=== PATIENT | male | born 1995 | race Caucasian/White ===

== ENCOUNTER 2019-09-10 09:42 | Observation (INO) | payer BC ==
[~2019-09-10] VITALS: Ht 180.3 cm; Wt 123.7 kg
[2019-09-10] MEDS ORDERED: IV NORMAL SALINE 1000ML BAG 1,000 ML IV SCH ×2 (10:16→15:53)
--- NOTE | 2019-09-10 10:21 | PHYS DOC ---
Past Medical History Past Medical History: No Pertinent History Past Surgical History: No Surgical History Smoking Status: Never Smoker Alcohol Use: None General Adult EDM: Chief Complaint: ABDOMINAL PAIN HPI: HPI: Patient is a 23 year old male who presents with a woke up 3:00 this morning with right flank pain. He states he went back to sleep and the pain is now located in his right lower quadrant. He states that sharp and shooting. He states he does not really have any back pain anymore. States he did have a bowel movement this morning and was normal for him. He states he did vomit once. He states he is nauseated. He denies fever, dysuria, diarrhea, constipation. Review of Systems: Review of Systems: GI: RLQ abdominal pain, nausea, vomiting, denies bloody stools or diarrhea. [] Heart Score: Risk Factors: Risk Factors: DM, Current or recent (<one month) smoker, HTN, HLP, family history of CAD, obesity. Risk Scores: Score 0 - 3: 2.5% MACE over next 6 weeks - Discharge Home Score 4 - 6: 20.3% MACE over next 6 weeks - Admit for Clinical Observation Score 7 - 10: 72.7% MACE over next 6 weeks - Early Invasive Strategies Physical Exam: PE: Constitutional: Well developed, well nourished, no acute distress, non-toxic appearance. [] HENT: Normocephalic, atraumatic, bilateral external ears normal, oropharynx moist, no oral exudates, nose normal. [] Eyes: PERRLA, EOMI, conjunctiva normal, no discharge. [] Neck: Normal range of motion, no tenderness, supple, no stridor. [] Cardiovascular:Heart rate regular rhythm, no murmur [] Lungs & Thorax: Bilateral breath sounds clear to auscultation [] Abdomen: Bowel sounds normal, soft, no tenderness, no masses, no pulsatile m asses. [] Skin: Warm, dry, no erythema, no rash. [] Back: No tenderness, no CVA tenderness. [] Extremities: No tenderness, no cyanosis, no clubbing, ROM intact, no edema. [] Neurologic: Alert and oriented X 3, normal motor function, normal sensory function, no focal deficits noted. [] Psychologic: Affect normal, judgement normal, mood normal. Normal Physical Exam [] Current Patient Data: Vital Signs: Vital Signs Date Time Temp Pulse Resp B/P (MAP) Pulse Ox O2 Delivery O2 Flow Rate FiO2 09/10/19 10:04 97.7 64 18 114/75 (88) 98 Room Air 97.7 EKG: EKG: [] Radiology/Procedures: Radiology/Procedures: [] Impression: [facility] [address] [place] [address] IMAGING REPORT Signed PATIENT: KEM ESPINOZA ACCOUNT: [id number] : 1995 LOCATION: ER AGE: 23 SEX: M EXAM STATUS: REG ER ORD. PHYSICIAN: ABELINO PORTILLO APRN REASON: RLQ pain PROCEDURE: CT ABD PELV W/ IV CONTRST ONLY Axial CT of the abdomen and pelvis were obtained after the administration of 75 cc Omnipaque 300. Coronal and sagittal reformats are also available. Exposure: One or more of the following individualized dose reduction techniques were utilized for this examination: 1. Automated exposure control 2. Adjustment of the mA and/or kV according to patient size 3. Use of iterative reconstruction technique Indication: Right lower quadrant pain. Comparison: None. Findings: The lung bases are clear. The heart is not enlarged. Liver is hypodense relative to the spleen. The spleen, adrenals, kidneys pancreas and gallbladder are unremarkable in appearance. There are a few small reactive lymph nodes in the right lower quadrant mesentery. There is an appendicolith identified in the appendix. The appendix is dilated full of air and fluid. There is minimal inflammatory change surrounding the appendix. Remainder of the stomach, small and large bowel are nondistended. Abdominal aorta is nonaneurysmal. The portal, superior mesenteric and splenic veins are normal in appearance. Bony structures are unremarkable. IMPRESSION: 1. Findings suggestive of occluded appendix with early changes of appendicitis. Correlate with physical examination findings. There is a high clinical suspicion correlate with surgical consult and possibly follow-up imaging if needed. 2. Hepatic steatosis. Electronically signed by: Bhupendra Marmolejo MD (09/10/2019 12:42 PM) [id number] DICTATED and SIGNED BY: BHUPENDRA MARMOLEJO MD DATE: 09/10/19 1246 Course & Med Decision Making: Course & Med Decision Making Pertinent Labs and Imaging studies reviewed. (See chart for details) Patient is rating his pain 8 out of 10. He states it will went up slightly at times. Nothing makes it better or worse. Abdomen is soft and nontender. No CVA tenderness. Skin pink warm and dry. Ambulatory with a steady gait. Alert and oriented. Afebrile. Patient CT shows appendicitis. Patient will stay inpatient be admitted by the hospitalist. I have spoken to Dr. Greene who states he will come see the patient. Patient states he has had nothing to eat or drink today. [] Dragon Disclaimer: Dragon Disclaimer: This electronic medical record was generated, in whole or in part, using a voice recognition dictation system. Departure Departure Impression: Primary Impression: Appendicitis Qualified Codes: K35.890 - Other acute appendicitis without perforation or gangrene Disposition: ADMITTED INPATIENT Admitting Physician: CONCHIS Condition: STABLE Referrals: NO PCP (PCP) Justicifation of Admission Dx: Justifications for Admission: Justification of Admission Dx: Yes Comments: appendicitis ABELINO PORTILLO NURSING SERVICE DIRECTOR Sep 10, 2019 10:21
[2019-09-10] MEDS ORDERED: fentaNYL PF VIAL 100 MCG/2 ML VIAL IVP ONE (10:30)
[2019-09-10] MEDS ORDERED: KETOROLAC 30 MG/ML VIAL. IVP ONE (10:30)
[2019-09-10 10:56] LABS: BILIRUBIN,URINE NEGATIVE (NEG); CLARITY,URINE CLOUDY; COLOR,URINE YELLOW; NITRITE,URINE NEGATIVE (NEG); PROTEIN,URINE NEGATIVE (NEG-TRACE); UROBILINOGEN,URINE 0.2 mg/dL (0.2 mg/dL)
[2019-09-10 10:59] LABS: BASO % 0 % (0-3); EOS % 0 % (0-3); HEMATOCRIT 49.1 % (39.0-53.0); HEMOGLOBIN 17.3 g/dL (13.0-17.5); LYMPH # 0.9 x10^3/uL (1.0-4.8); LYMPH % 5 % (24-48); MEAN CORPUSCULAR HEMOGLOBIN 30 pg (25-35); MEAN CORPUSCULAR HGB CONC 35 g/dL (31-37); MEAN CORPUSCULAR VOLUME 86 fL (79-100); MONO # 0.9 x10^3/uL (0.0-1.1); MONO % 6 % (0-9); NEUT # 14.9 x10^3/uL (1.8-7.7); NEUT % 89 % (31-73); PLATELET COUNT 254 x10^3/uL (140-400); RED CELL DISTRIBUTION WIDTH 12.5 % (11.5-14.5); WHITE BLOOD COUNT 16.7 x10^3/uL (4.0-11.0)
[2019-09-10 11:02] LABS: CREATININE 1.1 mg/dL (0.7-1.3); POTASSIUM 4.3 mmol/L (3.5-5.1)
[2019-09-10 11:08] LABS: ALBUMIN 4.5 g/dL (3.4-5.0); ALBUMIN/GLOBULIN RATIO 1.3 (1.0-1.7); TOTAL BILIRUBIN 1.1 mg/dL (0.2-1.0); TOTAL PROTEIN 8.1 g/dL (6.4-8.2)
[2019-09-10 11:15] LABS: PROTHROMBIN TIME PATIENT 13.1 SEC (11.7-14.0)
[2019-09-10 11:25] LABS: AMORPHOUS SEDIMENT,UR PRESENT /HPF; BACTERIA,URINE 0 /HPF (0-FEW); RBC,URINE 0 /HPF (0-2); SQUAMOUS EPITHELIAL CELL,UR FEW /LPF; WBC,URINE OCC /HPF (0-4)
[2019-09-10] MEDS ORDERED: IOHEXOL 300 MG/ML 100ML VIAL. IV ONE (12:30)
[2019-09-10] MEDS ORDERED: CONTRAST GIVEN. MC PRN (12:30)
[2019-09-10 12:42] LABS: % BANDS 21 % (0-9); % BASOS 1 % (0-3); % LYMPHS 8 % (24-48); % MONOS 5 % (0-10); % SEGS 65 % (35-66); PLT ESTIMATE ADEQUATE (ADEQUATE)
--- NOTE | 2019-09-10 12:45 | RAD ---
Axial CT of the abdomen and pelvis were obtained after the administration of 75 cc Omnipaque 300. Coronal and sagittal reformats are also available. Exposure: One or more of the following individualized dose reduction techniques were utilized for this examination: 1. Automated exposure control 2. Adjustment of the mA and/or kV according to patient size 3. Use of iterative reconstruction technique Indication: Right lower quadrant pain. Comparison: None. Findings: The lung bases are clear. The heart is not enlarged. Liver is hypodense relative to the spleen. The spleen, adrenals, kidneys pancreas and gallbladder are unremarkable in appearance. There are a few small reactive lymph nodes in the right lower quadrant mesentery. There is an appendicolith identified in the appendix. The appendix is dilated full of air and fluid. There is minimal inflammatory change surrounding the appendix. Remainder of the stomach, small and large bowel are nondistended. Abdominal aorta is nonaneurysmal. The portal, superior mesenteric and splenic veins are normal in appearance. Bony structures are unremarkable. IMPRESSION: 1. Findings suggestive of occluded appendix with early changes of appendicitis. Correlate with physical examination findings. There is a high clinical suspicion correlate with surgical consult and possibly follow-up imaging if needed. 2. Hepatic steatosis. Electronically signed by: Bhupendra Marmolejo MD (09/10/2019 12:42 PM) [id number]
[2019-09-10] MEDS ORDERED: PIPERACILLIN/TAZOBACTAM 3.375 GM in IV NORMAL SALINE 50ML 50 ML IV ONE (13:15)
[2019-09-10] MEDS ORDERED: ONDANSETRON PF 4 MG/2 ML VIAL. IV PRN ×2 (13:45→14:00)
--- NOTE | 2019-09-10 13:45 | PDOC2 ---
CONSULT Date of Consult Date of Consult DATE: 09/10/19 TIME: 13:38 Reason for Consult Reason for Consult: acute appendicitis Referring Physician Referring Physician: EVELYNE Identification/Chief Complaint Chief Complaint RLQ pain Source Source: Chart review, Patient History of Present Illness Reason for Visit: Denny is a 23-year-old male who was awakened at 3:00 this morning with right- sided back pain. By this morning it had migrated into the right lower quadrant. He had some nausea and an episode of vomiting. He had a normal stool this morning. He denies any similar previous episodes of this severity in the past. Past Medical History Cardiovascular: No pertinent hx Pulmonary: No pertinent hx Renal/: No pertinent hx Past Surgical History Past Surgical History: No pertinent history Family History Family History: No Significant Social History No ALCOHOL: none Lives: with Family Current Problem List Problem List Problems Medical Problems: (1) Appendicitis Status: Acute Current Medications Current Medications Current Medications Sodium Chloride 1,000 ml @ 1,000 mls/hr Q1H IV Last administered on 09/10/19at 10:42; Start 09/10/19 at 10:16; Stop 09/10/19 at 11:15; Status DC Fentanyl Citrate (Fentanyl 2ml Vial) 50 mcg 1X ONCE IVP Last administered on 09/10/19at 10:45; Start 09/10/19 at 10:30; Stop 09/10/19 at 10:31; Status DC Ketorolac Tromethamine (Toradol 30mg Vial) 30 mg 1X ONCE IVP Last administered on 09/10/19at 10:42; Start 09/10/19 at 10:30; Stop 09/10/19 at 10:31; Status DC Iohexol (Omnipaque 300 Mg/ml) 75 ml 1X ONCE IV Last administered on 09/10/19at 12:28; Start 09/10/19 at 12:30; Stop 09/10/19 at 12:31; Status DC Info (CONTRAST GIVEN -- Rx MONITORING) 1 each PRN DAILY PRN MC SEE COMMENTS; Start 09/10/19 at 12:30; Stop 09/12/19 at 12:29 Piperacillin Sod/ Tazobactam Sod 3.375 gm/Sodium Chloride 50 ml @ 100 mls/hr 1X ONCE IV Last administered on 09/10/19at 13:15; Start 09/10/19 at 13:15; Stop 09/10/19 at 13:44 Allergies Allergies: Coded Allergies: No Known Drug Allergies (Unverified , 09/10/19) ROS Review of System Negative with exception of present complaints Physical Exam General: Alert, Oriented X3, No acute distress HEENT: Atraumatic Lungs: Normal air movement Heart: Regular rate Abdomen: Soft, Other (Tender to palpation right lower quadrant) Skin: Other (Warm, dry) Neuro: Normal speech Vitals VITALS Vital Signs Date Time Temp Pulse Resp B/P (MAP) Pulse Ox O2 Delivery O2 Flow Rate FiO2 09/10/19 10:04 97.7 64 18 114/75 (88) 98 Room Air 97.7 Labs Labs Laboratory Tests Test 09/10/19 10:10 09/10/19 10:40 Urine Collection Type Unknown Urine Color Yellow Urine Clarity Cloudy Urine pH 6.0 (<5.0-8.0) Urine Specific [place] 1.025 (1.000-1.030) Urine Protein Negative mg/dL (NEG-TRACE) Urine Glucose (UA) Negative mg/dL (NEG) Urine Ketones (Stick) 15 mg/dL (NEG) Urine Blood Negative (NEG) Urine Nitrite Negative (NEG) Urine Bilirubin Negative (NEG) Urine Urobilinogen Dipstick 0.2 mg/dL (0.2 mg/dL) Urine Leukocyte Esterase Negative (NEG) Urine RBC 0 /HPF (0-2) Urine WBC Occ /HPF (0-4) Urine Squamous Epithelial Cells Few /LPF Urine Amorphous Sediment Present /HPF Urine Bacteria 0 /HPF (0-FEW) Urine Mucus Marked /LPF White Blood Count 16.7 x10^3/uL (4.0-11.0) Red Blood Count 5.70 x10^6/uL (4.30-5.70) Hemoglobin 17.3 g/dL (13.0-17.5) Hematocrit 49.1 % (39.0-53.0) Mean Corpuscular Volume 86 fL (79-100) Mean Corpuscular Hemoglobin 30 pg (25-35) Mean Corpuscular Hemoglobin Concent 35 g/dL (31-37) Red Cell Distribution Width 12.5 % (11.5-14.5) Platelet Count 254 x10^3/uL (140-400) Neutrophils (%) (Auto) 89 % (31-73) Lymphocytes (%) (Auto) 5 % (24-48) Monocytes (%) (Auto) 6 % (0-9) Eosinophils (%) (Auto) 0 % (0-3) Basophils (%) (Auto) 0 % (0-3) Neutrophils # (Auto) 14.9 x10^3/uL (1.8-7.7) Lymphocytes # (Auto) 0.9 x10^3/uL (1.0-4.8) Monocytes # (Auto) 0.9 x10^3/uL (0.0-1.1) Eosinophils # (Auto) 0.0 x10^3/uL (0.0-0.7) Basophils # (Auto) 0.0 x10^3/uL (0.0-0.2) Segmented Neutrophils % 65 % (35-66) Band Neutrophils % 21 % (0-9) Lymphocytes % 8 % (24-48) Monocytes % 5 % (0-10) Basophils % 1 % (0-3) Platelet Estimate Adequate (ADEQUATE) Prothrombin Time 13.1 SEC (11.7-14.0) Prothromb Time International Ratio 1.0 (0.8-1.1) Sodium Level 141 mmol/L (136-145) Potassium Level 4.3 mmol/L (3.5-5.1) Chloride Level 102 mmol/L (98-107) Carbon Dioxide Level 30 mmol/L (21-32) Anion Gap 9 (6-14) Blood Urea Nitrogen 11 mg/dL (8-26) Creatinine 1.1 mg/dL (0.7-1.3) Estimated GFR (Cockcroft-Gault) 83.0 BUN/Creatinine Ratio 10 (6-20) Glucose Level 121 mg/dL (70-99) Calcium Level 9.0 mg/dL (8.5-10.1) Total Bilirubin 1.1 mg/dL (0.2-1.0) Aspartate Amino Transf (AST/SGOT) 20 U/L (15-37) Alanine Aminotransferase (ALT/SGPT) 43 U/L (16-63) Alkaline Phosphatase 65 U/L (46-116) Total Protein 8.1 g/dL (6.4-8.2) Albumin 4.5 g/dL (3.4-5.0) Albumin/Globulin Ratio 1.3 (1.0-1.7) Lipase 69 U/L (73-393) Laboratory Tests Test 09/10/19 10:10 09/10/19 10:40 Urine Collection Type Unknown Urine Color Yellow Urine Clarity Cloudy Urine pH 6.0 (<5.0-8.0) Urine Specific [place] 1.025 (1.000-1.030) Urine Protein Negative mg/dL (NEG-TRACE) Urine Glucose (UA) Negative mg/dL (NEG) Urine Ketones (Stick) 15 mg/dL (NEG) Urine Blood Negative (NEG) Urine Nitrite Negative (NEG) Urine Bilirubin Negative (NEG) Urine Urobilinogen Dipstick 0.2 mg/dL (0.2 mg/dL) Urine Leukocyte Esterase Negative (NEG) Urine RBC 0 /HPF (0-2) Urine WBC Occ /HPF (0-4) Urine Squamous Epithelial Cells Few /LPF Urine Amorphous Sediment Present /HPF Urine Bacteria 0 /HPF (0-FEW) Urine Mucus Marked /LPF White Blood Count 16.7 x10^3/uL (4.0-11.0) Red Blood Count 5.70 x10^6/uL (4.30-5.70) Hemoglobin 17.3 g/dL (13.0-17.5) Hematocrit 49.1 % (39.0-53.0) Mean Corpuscular Volume 86 fL (79-100) Mean Corpuscular Hemoglobin 30 pg (25-35) Mean Corpuscular Hemoglobin Concent 35 g/dL (31-37) Red Cell Distribution Width 12.5 % (11.5-14.5) Platelet Count 254 x10^3/uL (140-400) Neutrophils (%) (Auto) 89 % (31-73) Lymphocytes (%) (Auto) 5 % (24-48) Monocytes (%) (Auto) 6 % (0-9) Eosinophils (%) (Auto) 0 % (0-3) Basophils (%) (Auto) 0 % (0-3) Neutrophils # (Auto) 14.9 x10^3/uL (1.8-7.7) Lymphocytes # (Auto) 0.9 x10^3/uL (1.0-4.8) Monocytes # (Auto) 0.9 x10^3/uL (0.0-1.1) Eosinophils # (Auto) 0.0 x10^3/uL (0.0-0.7) Basophils # (Auto) 0.0 x10^3/uL (0.0-0.2) Segmented Neutrophils % 65 % (35-66) Band Neutrophils % 21 % (0-9) Lymphocytes % 8 % (24-48) Monocytes % 5 % (0-10) Basophils % 1 % (0-3) Platelet Estimate Adequate (ADEQUATE) Prothrombin Time 13.1 SEC (11.7-14.0) Prothromb Time International Ratio 1.0 (0.8-1.1) Sodium Level 141 mmol/L (136-145) Potassium Level 4.3 mmol/L (3.5-5.1) Chloride Level 102 mmol/L (98-107) Carbon Dioxide Level 30 mmol/L (21-32) Anion Gap 9 (6-14) Blood Urea Nitrogen 11 mg/dL (8-26) Creatinine 1.1 mg/dL (0.7-1.3) Estimated GFR (Cockcroft-Gault) 83.0 BUN/Creatinine Ratio 10 (6-20) Glucose Level 121 mg/dL (70-99) Calcium Level 9.0 mg/dL (8.5-10.1) Total Bilirubin 1.1 mg/dL (0.2-1.0) Aspartate Amino Transf (AST/SGOT) 20 U/L (15-37) Alanine Aminotransferase (ALT/SGPT) 43 U/L (16-63) Alkaline Phosphatase 65 U/L (46-116) Total Protein 8.1 g/dL (6.4-8.2) Albumin 4.5 g/dL (3.4-5.0) Albumin/Globulin Ratio 1.3 (1.0-1.7) Lipase 69 U/L (73-393) CBC noted Images Images CT scan done earlier is reviewed Assessment/Plan Assessment/Plan Early acute appendicitis by history and lab and x-ray Explained risks of laparoscopic appendectomy to Denny and his mother who is in the room with him including but not limited to bleeding, infection, injury to surrounding structures requiring further surgery in the future, possibility that this is NOT an acute appendicitis (i.e. mesenteric adenitis, gastroenteritis). He will proceed. JOSE ANTONIO WILSON MD Sep 10, 2019 13:45
[2019-09-10] MEDS ORDERED: IV RINGERS,LACTATED 1000ML 1,000 ML IV SCH (13:46)
[2019-09-10] MEDS ORDERED: PROPOFOL 100 ML IV ONE (13:51)
[2019-09-10] MEDS ORDERED: SEVOFLURANE 31 TO 60 MINUTES. IH ONE (13:51)
[2019-09-10] MEDS ORDERED: KETOROLAC 30 MG/ML VIAL. ONE (13:51)
[2019-09-10] MEDS ORDERED: ROCURONIUM 50 MG/5 ML VIAL. ONE (13:51)
[2019-09-10] MEDS ORDERED: fentaNYL PF VIAL 100 MCG/2 ML VIAL ONE (13:51)
[2019-09-10] MEDS ORDERED: DEXAMETHASONE SOD PHOS 4 MG/ML VIAL ONE ×2 (13:51→15:06)
[2019-09-10] MEDS ORDERED: FAMOTIDINE 20 MG/2 ML VIAL ONE (13:51)
[2019-09-10] MEDS ORDERED: MIDAZOLAM HCL/PF 2 MG/2 ML VIAL. ONE (13:51)
[2019-09-10] MEDS ORDERED: BACITRACIN 50,000 UNIT VIAL. IRR ONE (13:54)
--- NOTE | 2019-09-10 13:55 | PDOC1 ---
History and Physical Date of Admission Date of Admission DATE: 09/10/19 TIME: 13:54 Identification/Chief Complaint Chief Complaint Lower back pain Source Source: Patient History of Present Illness History of Present Illness Mr Barrett is a 23yo M w/ no PMHx who awoke suddenly at approximately 2 AM today with right lower back pain. Once he was able to get back to sleep he awoke and scheduled an appointment with a chiropractor for 9am, but by the time he was going to that appointment the pain had migrated to his right lower quadrant and had become much more severe, colicky 8/10 at worst with some associated nausea. 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 Non-smoker nondrinker, does not use illicit drugs. He is rather sedentary and when not at work he plays online video games with his brother who is currently in the [employer]. Prior to ED he had an episode of vomiting. CT abdomen shows early appendicitis. WBC 16.7, Hb 17.3, platelets 253, NA 141, K4.3, CR 1.1, glucose 121. Admitted for further care with surgical consultation. Past Medical History Cardiovascular: No pertinent hx Pulmonary: No pertinent hx Renal/: No pertinent hx Past Surgical History Past Surgical History: No pertinent history Family History Family History: Cancer (Maternal grandmother - breast), Diabetes (Paternal grandfather) Family History: Parent (Father - CVA at 52) Social History Smoke: No ALCOHOL: none Drugs: None Current Problem List Problem List Problems Medical Problems: (1) Appendicitis Status: Acute Current Medications Current Medications Current Medications Sodium Chloride 1,000 ml @ 1,000 mls/hr Q1H IV Last administered on 09/10/19at 10:42; Start 09/10/19 at 10:16; Stop 09/10/19 at 11:15; Status DC Fentanyl Citrate (Fentanyl 2ml Vial) 50 mcg 1X ONCE IVP Last administered on 09/10/19at 10:45; Start 09/10/19 at 10:30; Stop 09/10/19 at 10:31; Status DC Ketorolac Tromethamine (Toradol 30mg Vial) 30 mg 1X ONCE IVP Last administered on 09/10/19at 10:42; Start 09/10/19 at 10:30; Stop 09/10/19 at 10:31; Status DC Iohexol (Omnipaque 300 Mg/ml) 75 ml 1X ONCE IV Last administered on 09/10/19at 12:28; Start 09/10/19 at 12:30; Stop 09/10/19 at 12:31; Status DC Info (CONTRAST GIVEN -- Rx MONITORING) 1 each PRN DAILY PRN MC SEE COMMENTS; Start 09/10/19 at 12:30; Stop 09/12/19 at 12:29 Piperacillin Sod/ Tazobactam Sod 3.375 gm/Sodium Chloride 50 ml @ 100 mls/hr 1X ONCE IV Last administered on 09/10/19at 13:15; Start 09/10/19 at 13:15; Stop 09/10/19 at 13:44; Status DC Ondansetron HCl (Zofran) 4 mg PRN Q8HRS PRN IV NAUSEA/VOMITING; Start 09/10/19 at 13:45; Stop 09/11/19 at 13:44 Ondansetron HCl (Zofran) 4 mg PRN Q6HRS PRN IV NAUSEA/VOMITING; Start 09/10/19 at 14:00; Stop 09/11/19 at 13:59 Fentanyl Citrate (Fentanyl 2ml Vial) 25 mcg PRN Q5MIN PRN IV MILD PAIN 1-3; Start 09/10/19 at 14:00; Stop 09/11/19 at 13:59 Fentanyl Citrate (Fentanyl 2ml Vial) 50 mcg PRN Q5MIN PRN IV MODERATE TO SEVERE PAIN; Start 09/10/19 at 14:00; Stop 09/11/19 at 13:59 Morphine Sulfate (Morphine Sulfate) 1 mg PRN Q10MIN PRN IV SEVERE PAIN 7-10; Start 09/10/19 at 14:00; Stop 09/11/19 at 13:59 Ringer's Solution 1,000 ml @ 30 mls/hr Q24H IV ; Start 09/10/19 at 13:46; Stop 09/11/19 at 01:45 Hydromorphone HCl (Dilaudid) 0.5 mg PRN Q10MIN PRN IV SEV PAIN, Second choice; Start 09/10/19 at 14:00; Stop 09/11/19 at 13:59 Prochlorperazine Edisylate (Compazine) 5 mg PACU PRN PRN IV NAUSEA, MRX1; S tart 09/10/19 at 14:00; Stop 09/11/19 at 13:59 Famotidine (Pepcid Vial) 20 mg STK-MED ONCE .ROUTE ; Start 09/10/19 at 13:51; Stop 09/10/19 at 13:51; Status DC Ketorolac Tromethamine (Toradol 30mg Vial) 30 mg STK-MED ONCE .ROUTE ; Start 09/10/19 at 13:51; Stop 09/10/19 at 13:51; Status DC Dexamethasone Sodium Phosphate (Decadron) 4 mg STK-MED ONCE .ROUTE ; Start 09/10/19 at 13:51; Stop 09/10/19 at 13:51; Status DC Sevoflurane (Ultane) 30 ml STK-MED ONCE IH ; Start 09/10/19 at 13:51; Stop 09/10/19 at 13:51; Status DC Propofol 100 ml @ As Directed STK-MED ONCE IV ; Start 09/10/19 at 13:51; Stop 09/10/19 at 13:51; Status DC Rocuronium [place] (Zemuron) 50 mg STK-MED ONCE .ROUTE ; Start 09/10/19 at 13:51; Stop 09/10/19 at 13:51; Status DC Fentanyl Citrate (Fentanyl 2ml Vial) 100 mcg STK-MED ONCE .ROUTE ; Start 09/10/19 at 13:51; Stop 09/10/19 at 13:51; Status DC Midazolam HCl (Versed) 2 mg STK-MED ONCE .ROUTE ; Start 09/10/19 at 13:51; Stop 09/10/19 at 13:52; Status DC Allergies Allergies: Coded Allergies: No Known Drug Allergies (Unverified , 09/10/19) ROS General: YES: Fatigue, Malaise; No: Chills, Night Sweats, Appetite, Other PSYCHOLOGICAL ROS: No: Anxiety, Behavioral Disorder, Concentration difficultie, Decreased libido, Depression, Disorientation, Hallucinations, Hostility, Irritablity, Memory difficulties, Mood Swings, Obsessive thoughts, Physical abuse, Sexual abuse, Sleep disturbances, Suicidal ideation, Other Eyes: No Blurry vision, No Decreased vision, No Double vision, No Dry eyes, No Excessive tearing, No Eye Pain, No Itchy Eyes, No Loss of vision, No Photophobia, No Scotomata, No Uses contacts, No Uses glasses, No Other HEENT: No: Heacaches, Visual Changes, Hearing change, Nasal congestion, Nasal discharge, Oral lesions, Sinus pain, Sore Throat, Epistaxis, Sneezing, Snoring, Tinnitus, Vertigo, Vocal changes, Other ALLERGY AND IMMUNOLOGY: No: Hives, Insect Bite Sensitivity, Itchy/Watery Eyes, Nasal Congestion, Post Nasal Drip, Seasonal Allergies, Other Hematological and Lymphatic: No: Bleeding Problems, Blood Clots, Blood T ransfusions, Brusing, Night Sweats, Pallor, Swollen Lymph Nodes, Other ENDOCRINE: No: Breast Changes, Galactorrhea, Hair Pattern Changes, Hot Flashes, Malaise/lethargy, Mood Swings, Palpitations, Polydipsia/polyuria, Skin Changes, Temperature Intolerance, Unexpected Weight Changes, Other Breast: No New/Changing Breast Lumps, No Nipple changes, No Nipple discharge, No Other Respiratory: No: Cough, Hemoptysis, Orthopnea, Pleuritic Pain, Shortness of breath, SOB with excertion, Sputum Changes, Stridor, Tachypnea, Wheezing, Other Cardiovascular: No Chest Pain, No Palpitations, No Orthopnea, No Paroxysmal Noc. Dyspnea, No Edema, No Lt Headedness, No Other Gastrointestinal: Yes Nausea, Yes Vomiting, Yes Abdominal Pain; No Diarrhea, No Constipation, No Melena, No Hematochezia, No Other Genitourinary: No Dysuria, No Frequency, No Incontinence, No Hematuria, No Retention, No Discharge, No Urgency, No Pain, No Flank Pain, No Other, No , No , No , No , No , No , No Musculoskeletal: No Gait Disturbance, No Joint Pain, No Joint Stiffness, No Joint Swelling, No Muscle Pain, No Muscular Weakness, No Pain In:, No Swelling In:, No Other Neurological: No Behavorial Changes, No Bowel/Bladder ControlChng, No Confusion, No Dizziness, No Gait Disturbance, No Headaches, No Impaired Coord/balance, No Memory Loss, No Numbness/Tingling, No Seizures, No Speech Problems, No Tremors, No Visual Changes, No Weakness, No Other Skin: No Dry Skin, No Eczema, No Hair Changes, No Lumps, No Mole Changes, No Mottling, No Nail Changes, No Pruritus, No Rash, No Skin Lesion Changes, No Other, No Acne Physical Exam General: Alert, Oriented X3, Cooperative, mild distress HEENT: Atraumatic, PERRLA, EOMI, Mucous membr. moist/pink Lungs: Clear to auscultation, Normal air movement Heart: S1S2, RRR, no thrills, no rubs, no gallops, no murmurs Abdomen: Normal bowel sounds, Soft, No hepatosplenomegaly, No masses, Other (RLQ tender) Rectal Exam: not examined Extremities: No clubbing, No cyanosis, No edema, Normal pulses, No tenderness/swelling Skin: No rashes, No breakdown, No significant lesion Neuro: Normal gait, Normal speech, Strength at 5/5 X4 ext, Normal tone, Sensation intact, Cranial nerves 3-12 NL, Reflexes 2+ Psych/Mental Status: Mental status NL, Mood NL Vitals Vitals Vital Signs Date Time Temp Pulse Resp B/P (MAP) Pulse Ox O2 Delivery O2 Flow Rate FiO2 09/10/19 13:33 68 18 138/86 (103) 100 Room Air 09/10/19 10:04 97.7 97.7 Labs Labs Laboratory Tests Test 09/10/19 10:10 09/10/19 10:40 Urine Collection Type Unknown Urine Color Yellow Urine Clarity Cloudy Urine pH 6.0 (<5.0-8.0) Urine Specific Carlotta 1.025 (1.000-1.030) Urine Protein Negative mg/dL (NEG-TRACE) Urine Glucose (UA) Negative mg/dL (NEG) Urine Ketones (Stick) 15 mg/dL (NEG) Urine Blood Negative (NEG) Urine Nitrite Negative (NEG) Urine Bilirubin Negative (NEG) Urine Urobilinogen Dipstick 0.2 mg/dL (0.2 mg/dL) Urine Leukocyte Esterase Negative (NEG) Urine RBC 0 /HPF (0-2) Urine WBC Occ /HPF (0-4) Urine Squamous Epithelial Cells Few /LPF Urine Amorphous Sediment Present /HPF Urine Bacteria 0 /HPF (0-FEW) Urine Mucus Marked /LPF White Blood Count 16.7 x10^3/uL (4.0-11.0) Red Blood Count 5.70 x10^6/uL (4.30-5.70) Hemoglobin 17.3 g/dL (13.0-17.5) Hematocrit 49.1 % (39.0-53.0) Mean Corpuscular Volume 86 fL (79-100) Mean Corpuscular Hemoglobin 30 pg (25-35) Mean Corpuscular Hemoglobin Concent 35 g/dL (31-37) Red Cell Distribution Width 12.5 % (11.5-14.5) Platelet Count 254 x10^3/uL (140-400) Neutrophils (%) (Auto) 89 % (31-73) Lymphocytes (%) (Auto) 5 % (24-48) Monocytes (%) (Auto) 6 % (0-9) Eosinophils (%) (Auto) 0 % (0-3) Basophils (%) (Auto) 0 % (0-3) Neutrophils # (Auto) 14.9 x10^3/uL (1.8-7.7) Lymphocytes # (Auto) 0.9 x10^3/uL (1.0-4.8) Monocytes # (Auto) 0.9 x10^3/uL (0.0-1.1) Eosinophils # (Auto) 0.0 x10^3/uL (0.0-0.7) Basophils # (Auto) 0.0 x10^3/uL (0.0-0.2) Segmented Neutrophils % 65 % (35-66) Band Neutrophils % 21 % (0-9) Lymphocytes % 8 % (24-48) Monocytes % 5 % (0-10) Basophils % 1 % (0-3) Platelet Estimate Adequate (ADEQUATE) Prothrombin Time 13.1 SEC (11.7-14.0) Prothromb Time International Ratio 1.0 (0.8-1.1) Sodium Level 141 mmol/L (136-145) Potassium Level 4.3 mmol/L (3.5-5.1) Chloride Level 102 mmol/L (98-107) Carbon Dioxide Level 30 mmol/L (21-32) Anion Gap 9 (6-14) Blood Urea Nitrogen 11 mg/dL (8-26) Creatinine 1.1 mg/dL (0.7-1.3) Estimated GFR (Cockcroft-Gault) 83.0 BUN/Creatinine Ratio 10 (6-20) Glucose Level 121 mg/dL (70-99) Calcium Level 9.0 mg/dL (8.5-10.1) Total Bilirubin 1.1 mg/dL (0.2-1.0) Aspartate Amino Transf (AST/SGOT) 20 U/L (15-37) Alanine Aminotransferase (ALT/SGPT) 43 U/L (16-63) Alkaline Phosphatase 65 U/L (46-116) Total Protein 8.1 g/dL (6.4-8.2) Albumin 4.5 g/dL (3.4-5.0) Albumin/Globulin Ratio 1.3 (1.0-1.7) Lipase 69 U/L (73-393) Laboratory Tests Test 09/10/19 10:10 09/10/19 10:40 Urine Collection Type Unknown Urine Color Yellow Urine Clarity Cloudy Urine pH 6.0 (<5.0-8.0) Urine Specific Carlotta 1.025 (1.000-1.030) Urine Protein Negative mg/dL (NEG-TRACE) Urine Glucose (UA) Negative mg/dL (NEG) Urine Ketones (Stick) 15 mg/dL (NEG) Urine Blood Negative (NEG) Urine Nitrite Negative (NEG) Urine Bilirubin Negative (NEG) Urine Urobilinogen Dipstick 0.2 mg/dL (0.2 mg/dL) Urine Leukocyte Esterase Negative (NEG) Urine RBC 0 /HPF (0-2) Urine WBC Occ /HPF (0-4) Urine Squamous Epithelial Cells Few /LPF Urine Amorphous Sediment Present /HPF Urine Bacteria 0 /HPF (0-FEW) Urine Mucus Marked /LPF White Blood Count 16.7 x10^3/uL (4.0-11.0) Red Blood Count 5.70 x10^6/uL (4.30-5.70) Hemoglobin 17.3 g/dL (13.0-17.5) Hematocrit 49.1 % (39.0-53.0) Mean Corpuscular Volume 86 fL (79-100) Mean Corpuscular Hemoglobin 30 pg (25-35) Mean Corpuscular Hemoglobin Concent 35 g/dL (31-37) Red Cell Distribution Width 12.5 % (11.5-14.5) Platelet Count 254 x10^3/uL (140-400) Neutrophils (%) (Auto) 89 % (31-73) Lymphocytes (%) (Auto) 5 % (24-48) Monocytes (%) (Auto) 6 % (0-9) Eosinophils (%) (Auto) 0 % (0-3) Basophils (%) (Auto) 0 % (0-3) Neutrophils # (Auto) 14.9 x10^3/uL (1.8-7.7) Lymphocytes # (Auto) 0.9 x10^3/uL (1.0-4.8) Monocytes # (Auto) 0.9 x10^3/uL (0.0-1.1) Eosinophils # (Auto) 0.0 x10^3/uL (0.0-0.7) Basophils # (Auto) 0.0 x10^3/uL (0.0-0.2) Segmented Neutrophils % 65 % (35-66) Band Neutrophils % 21 % (0-9) Lymphocytes % 8 % (24-48) Monocytes % 5 % (0-10) Basophils % 1 % (0-3) Platelet Estimate Adequate (ADEQUATE) Prothrombin Time 13.1 SEC (11.7-14.0) Prothromb Time International Ratio 1.0 (0.8-1.1) Sodium Level 141 mmol/L (136-145) Potassium Level 4.3 mmol/L (3.5-5.1) Chloride Level 102 mmol/L (98-107) Carbon Dioxide Level 30 mmol/L (21-32) Anion Gap 9 (6-14) Blood Urea Nitrogen 11 mg/dL (8-26) Creatinine 1.1 mg/dL (0.7-1.3) Estimated GFR (Cockcroft-Gault) 83.0 BUN/Creatinine Ratio 10 (6-20) Glucose Level 121 mg/dL (70-99) Calcium Level 9.0 mg/dL (8.5-10.1) Total Bilirubin 1.1 mg/dL (0.2-1.0) Aspartate Amino Transf (AST/SGOT) 20 U/L (15-37) Alanine Aminotransferase (ALT/SGPT) 43 U/L (16-63) Alkaline Phosphatase 65 U/L (46-116) Total Protein 8.1 g/dL (6.4-8.2) Albumin 4.5 g/dL (3.4-5.0) Albumin/Globulin Ratio 1.3 (1.0-1.7) Lipase 69 U/L (73-393) Images Images CT abdomen/pelvis: The lung bases are clear. The heart is not enlarged. Liver is hypodense relative to the spleen. The spleen, adrenals, kidneys pancreas and gallbladder are unremarkable in appearance. There are a few small reactive lymph nodes in the right lower quadrant mesentery. There is an appendicolith identified in the appendix. The appendix is dilated full of air and fluid. There is minimal inflammatory change surrounding the appendix. Remainder of the stomach, small and large bowel are nondistended. Abdominal aorta is nonaneurysmal. The portal, superior mesenteric and splenic veins are normal in appearance. Bony structures are unremarkable. IMPRESSION: 1. Findings suggestive of occluded appendix with early changes of appendicitis. Correlate with physical examination findings. There is a high clinical suspicion correlate with surgical consult and possibly follow-up imaging if needed. 2. Hepatic steatosis. VTE Prophylaxis Ordered VTE Prophylaxis Devices: No VTE Pharmacological Prophylaxi: No Assessment/Plan Assessment/Plan A/P: Acute appendicitis - zosyn, general surgery consultation. pain control with fentanyl. Zofran for nausea. No further testing prior to surgery Lower back pain - this seems to be acute appendicitis Obesity - counseled on sedentary lifestyle, diet, exercise Leukocytosis - likely related to appendicitis, will monitor FEN - NPO PPX - SCDS, low risk dvt FULL CODE Dispo - inpatient for above Justicifation of Admission Dx: Justifications for Admission: Justification of Admission Dx: Yes ZURDO MARTINEZ MD Sep 10, 2019 13:55
[2019-09-10] MEDS ORDERED: BUPIVACAINE-EPI 0.5%-1:200000 MPF 30 ML VIAL. ONE (13:56)
[2019-09-10] MEDS: fentaNYL PF VIAL 100 MCG/2 ML VIAL IV PRN ×3 (13:59→16:25)
[2019-09-10] MEDS ORDERED: fentaNYL PF VIAL 100 MCG/2 ML VIAL IV PRN (14:00)
[2019-09-10] MEDS ORDERED: PROCHLORPERAZINE 10 MG/2 ML VIAL. IV PRN (14:00)
[2019-09-10] MEDS ORDERED: MORPHINE SULFATE 2 MG/ML VIAL. IV PRN (14:00)
[2019-09-10] MEDS ORDERED: HYDROmorphone 2 MG/ML VIAL IV PRN ×2 (14:00→16:00)
[2019-09-10] MEDS ORDERED: ceFAZolin SODIUM IV Push 1 GM VIAL. IVP ONE (14:17)
[2019-09-10] MEDS ORDERED: GLYCOPYRROLATE 1 MG/5 ML VIAL. ONE (15:06)
[2019-09-10] MEDS: POTASSIUM CL 20MEQ-0.45% NACL 1,000 ML IV SCH (15:53)
[2019-09-10] MEDS ORDERED: oxyCODONE/APAP 5/325 1 TAB TABLET PO PRN ×2 (16:00)
[2019-09-10] MEDS ORDERED: NALOXONE 0.4 MG/ML VIAL. IV PRN (16:00)
[2019-09-10] MEDS ORDERED: DEXTROSE 50% 25 GM / 50ML DISP.SYRIN. IV PRN (16:00)
[2019-09-10] MEDS ORDERED: ONDANSETRON PF 4 MG/2 ML VIAL. IVP PRN (16:00)
[2019-09-10] MEDS ORDERED: 0.9 % SODIUM CHLORIDE 10 ML DISP.SYRIN. IV PRN (16:00)
--- NOTE | 2019-09-10 16:08 | PDOC ---
BRIEF OPERATIVE NOTE Date: Sep 10, 2019 Pre-Op Diagnosis acute appendicitis Post-Op Diagnosis same Procedure Performed l/s appendectomy Surgeon Be Anesthesia Type: General Blood Loss 10cc IV Fluid 200cc Urine Output 600cc Specimens Obtained appendix Findings acute appendicitis Complications none Operative Note Wk # [id number] JOSE ANTONIO WILSON MD Sep 10, 2019 16:08
[2019-09-10 16:43] VITALS: BP 118/83
--- NOTE | 2019-09-10 16:45 | OP ---
DATE OF SURGERY: 09/10/2019 PREOPERATIVE DIAGNOSIS: Acute appendicitis. POSTOPERATIVE DIAGNOSIS: Acute appendicitis. PROCEDURE: Laparoscopic appendectomy. SURGEON: Reymundo Wilson MD ANESTHESIA: General endotracheal. ESTIMATED BLOOD LOSS: 10 mL. INTRAVENOUS FLUIDS: 200 mL. URINE OUTPUT: 600 mL. INDICATIONS: The patient is a 23-year-old with right-sided pain, elevated white count, CT consistent with appendicitis. Brought for appendectomy. OPERATIVE FINDINGS: He did indeed have an acute suppurative appendicitis without evidence of rupture. DESCRIPTION OF PROCEDURE: The patient brought to the operating suite, given a general endotracheal anesthetic. Swift catheter placed to dependent drainage and the abdomen prepped and draped in usual sterile fashion. An epigastric incision was infiltrated with local anesthetic, incised and a 5 mm Visiport used to safely gain access into the abdominal cavity, taking care to avoid injury to abdominal contents. Pneumoperitoneum established. Camera inserted. Inspection carried out with results as noted above. Under direct vision, the suprapubic and left lower quadrant ports were placed. Epigastric port converted to 12 mm for instrumentation. Appendix was identified and grasped through the suprapubic port. Rent created between the base of the appendix and the mesoappendix. The mesoappendix was divided with a vascular load of the Endo-SIMRAN. Similarly, a tissue load was used to amputate the appendix and it was placed in an EndoCatch bag. With intraabdominal pressure decreased to 6 cm of water, no bleeding from the staple lines was seen. Table returned to level. Appendix delivered through the epigastric incision, which was then closed with 0 Vicryl. No bleeding from the closure or from the left lower quadrant port site after its removal. Abdomen decompressed, camera removed, no bleeding seen. Skin incisions closed with subcuticular 4-0 Monocryl. Steri-Strips and sterile dressing applied. Swift catheter removed. The patient was awakened from his anesthetic and taken to the recovery room in satisfactory condition. REYMUNDO WILSON MD DR: JEANINE/mark JOB#: [id number] / [id number]
[2019-09-10 19:00] VITALS: BP 117/57
[2019-09-10] MEDS ORDERED: PSYLLIUM HUSK (SUGAR FREE) 1 PKT PACKET PO SCH (21:00)
[2019-09-10] MEDS: DOCUSATE SODIUM 100 MG CAPSULE. PO SCH (21:05)
[2019-09-10 23:00] VITALS: BP 106/50
[2019-09-11] MEDS: POTASSIUM CL 20MEQ-0.45% NACL 1,000 ML IV SCH (01:53)
--- NOTE | 2019-09-11 02:00 | NUR ---
Pt tolerating PO fluids, regular diet.
[2019-09-11 03:00] VITALS: BP 105/58
[2019-09-11 07:00] VITALS: BP 130/83
[2019-09-11] MEDS: DOCUSATE SODIUM 100 MG CAPSULE. PO SCH (08:53)
--- NOTE | 2019-09-11 09:44 | PDOC ---
PROGRESS NOTES Chief Complaint Chief Complaint A/P: Acute appendicitis - S/p lap appy Lower back pain - this seems to be acute appendicitis Obesity - counseled on sedentary lifestyle, diet, exercise Leukocytosis - likely related to appendicitis, will monitor History of Present Illness History of Present Illness Mr Barrett is a 23yo M w/ no PMHx who awoke suddenly at approximately 2 AM today with right lower back pain. Once he was able to get back to sleep he awoke and scheduled an appointment with a chiropractor for 9am, but by the time he was going to that appointment the pain had migrated to his right lower quadrant and had become much more severe, colicky 8/10 at worst with some associated nausea. 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 Non-smoker nondrinker, does not use illicit drugs. He is rather sedentary and when not at work he plays online video games with his brother who is currently in the [place]. Prior to ED he had an episode of vomiting. CT abdomen shows early appendicitis. WBC 16.7, Hb 17.3, platelets 253, NA 141, K4.3, CR 1.1, glucose 121. Admitted for further care with surgical consultation. COVID 19 negative To OR with uneventful lap appendectomy. Afebrile. Eating this morning. Passing gas. Minimal pain. No SOB or CP. Some epigastric discomfort with deep inspiration. Vitals Vitals Vital Signs Date Time Temp Pulse Resp B/P (MAP) Pulse Ox O2 Delivery O2 Flow Rate FiO2 09/11/19 08:00 Room Air 09/11/19 07:00 97.8 83 20 130/83 (99) 100 97.8 09/10/19 15:48 10 Physical Exam General: Alert, Oriented X3, Cooperative, mild distress Heart: Regular rate Abdomen: Normal bowel sounds, Soft, No hepatosplenomegaly, No masses, Other (RLQ tender) Extremities: No clubbing, No cyanosis, No edema, Normal pulses, No tendern ess/swelling Skin: No rashes, No breakdown, No significant lesion Labs LABS Laboratory Tests Test 09/10/19 10:10 09/10/19 10:40 09/10/19 13:20 Urine Collection Type Unknown Urine Color Yellow Urine Clarity Cloudy Urine pH 6.0 (<5.0-8.0) Urine Specific [place] 1.025 (1.000-1.030) Urine Protein Negative mg/dL (NEG-TRACE) Urine Glucose (UA) Negative mg/dL (NEG) Urine Ketones (Stick) 15 mg/dL (NEG) Urine Blood Negative (NEG) Urine Nitrite Negative (NEG) Urine Bilirubin Negative (NEG) Urine Urobilinogen Dipstick 0.2 mg/dL (0.2 mg/dL) Urine Leukocyte Esterase Negative (NEG) Urine RBC 0 /HPF (0-2) Urine WBC Occ /HPF (0-4) Urine Squamous Epithelial Cells Few /LPF Urine Amorphous Sediment Present /HPF Urine Bacteria 0 /HPF (0-FEW) Urine Mucus Marked /LPF White Blood Count 16.7 x10^3/uL (4.0-11.0) Red Blood Count 5.70 x10^6/uL (4.30-5.70) Hemoglobin 17.3 g/dL (13.0-17.5) Hematocrit 49.1 % (39.0-53.0) Mean Corpuscular Volume 86 fL (79-100) Mean Corpuscular Hemoglobin 30 pg (25-35) Mean Corpuscular Hemoglobin Concent 35 g/dL (31-37) Red Cell Distribution Width 12.5 % (11.5-14.5) Platelet Count 254 x10^3/uL (140-400) Neutrophils (%) (Auto) 89 % (31-73) Lymphocytes (%) (Auto) 5 % (24-48) Monocytes (%) (Auto) 6 % (0-9) Eosinophils (%) (Auto) 0 % (0-3) Basophils (%) (Auto) 0 % (0-3) Neutrophils # (Auto) 14.9 x10^3/uL (1.8-7.7) Lymphocytes # (Auto) 0.9 x10^3/uL (1.0-4.8) Monocytes # (Auto) 0.9 x10^3/uL (0.0-1.1) Eosinophils # (Auto) 0.0 x10^3/uL (0.0-0.7) Basophils # (Auto) 0.0 x10^3/uL (0.0-0.2) Segmented Neutrophils % 65 % (35-66) Band Neutrophils % 21 % (0-9) Lymphocytes % 8 % (24-48) Monocytes % 5 % (0-10) Basophils % 1 % (0-3) Platelet Estimate Adequate (ADEQUATE) Prothrombin Time 13.1 SEC (11.7-14.0) Prothromb Time International Ratio 1.0 (0.8-1.1) Sodium Level 141 mmol/L (136-145) Potassium Level 4.3 mmol/L (3.5-5.1) Chloride Level 102 mmol/L (98-107) Carbon Dioxide Level 30 mmol/L (21-32) Anion Gap 9 (6-14) Blood Urea Nitrogen 11 mg/dL (8-26) Creatinine 1.1 mg/dL (0.7-1.3) Estimated GFR (Cockcroft-Gault) 83.0 BUN/Creatinine Ratio 10 (6-20) Glucose Level 121 mg/dL (70-99) Calcium Level 9.0 mg/dL (8.5-10.1) Total Bilirubin 1.1 mg/dL (0.2-1.0) Aspartate Amino Transf (AST/SGOT) 20 U/L (15-37) Alanine Aminotransferase (ALT/SGPT) 43 U/L (16-63) Alkaline Phosphatase 65 U/L (46-116) Total Protein 8.1 g/dL (6.4-8.2) Albumin 4.5 g/dL (3.4-5.0) Albumin/Globulin Ratio 1.3 (1.0-1.7) Lipase 69 U/L (73-393) Coronavirus (COVID-19)(PCR) Negative (NEGATIVE) Assessment and Plan Assessmemt and Plan Problems Medical Problems: (1) Appendicitis Status: Acute Comment Review of Relevant I have reviewed the following items joshua (where applicable) has been applied. Labs Laboratory Tests Test 09/10/19 10:10 09/10/19 10:40 09/10/19 13:20 Urine Collection Type Unknown Urine Color Yellow Urine Clarity Cloudy Urine pH 6.0 (<5.0-8.0) Urine Specific [place] 1.025 (1.000-1.030) Urine Protein Negative mg/dL (NEG-TRACE) Urine Glucose (UA) Negative mg/dL (NEG) Urine Ketones (Stick) 15 mg/dL (NEG) Urine Blood Negative (NEG) Urine Nitrite Negative (NEG) Urine Bilirubin Negative (NEG) Urine Urobilinogen Dipstick 0.2 mg/dL (0.2 mg/dL) Urine Leukocyte Esterase Negative (NEG) Urine RBC 0 /HPF (0-2) Urine WBC Occ /HPF (0-4) Urine Squamous Epithelial Cells Few /LPF Urine Amorphous Sediment Present /HPF Urine Bacteria 0 /HPF (0-FEW) Urine Mucus Marked /LPF White Blood Count 16.7 x10^3/uL (4.0-11.0) Red Blood Count 5.70 x10^6/uL (4.30-5.70) Hemoglobin 17.3 g/dL (13.0-17.5) Hematocrit 49.1 % (39.0-53.0) Mean Corpuscular Volume 86 fL (79-100) Mean Corpuscular Hemoglobin 30 pg (25-35) Mean Corpuscular Hemoglobin Concent 35 g/dL (31-37) Red Cell Distribution Width 12.5 % (11.5-14.5) Platelet Count 254 x10^3/uL (140-400) Neutrophils (%) (Auto) 89 % (31-73) Lymphocytes (%) (Auto) 5 % (24-48) Monocytes (%) (Auto) 6 % (0-9) Eosinophils (%) (Auto) 0 % (0-3) Basophils (%) (Auto) 0 % (0-3) Neutrophils # (Auto) 14.9 x10^3/uL (1.8-7.7) Lymphocytes # (Auto) 0.9 x10^3/uL (1.0-4.8) Monocytes # (Auto) 0.9 x10^3/uL (0.0-1.1) Eosinophils # (Auto) 0.0 x10^3/uL (0.0-0.7) Basophils # (Auto) 0.0 x10^3/uL (0.0-0.2) Segmented Neutrophils % 65 % (35-66) Band Neutrophils % 21 % (0-9) Lymphocytes % 8 % (24-48) Monocytes % 5 % (0-10) Basophils % 1 % (0-3) Platelet Estimate Adequate (ADEQUATE) Prothrombin Time 13.1 SEC (11.7-14.0) Prothromb Time International Ratio 1.0 (0.8-1.1) Sodium Level 141 mmol/L (136-145) Potassium Level 4.3 mmol/L (3.5-5.1) Chloride Level 102 mmol/L (98-107) Carbon Dioxide Level 30 mmol/L (21-32) Anion Gap 9 (6-14) Blood Urea Nitrogen 11 mg/dL (8-26) Creatinine 1.1 mg/dL (0.7-1.3) Estimated GFR (Cockcroft-Gault) 83.0 BUN/Creatinine Ratio 10 (6-20) Glucose Level 121 mg/dL (70-99) Calcium Level 9.0 mg/dL (8.5-10.1) Total Bilirubin 1.1 mg/dL (0.2-1.0) Aspartate Amino Transf (AST/SGOT) 20 U/L (15-37) Alanine Aminotransferase (ALT/SGPT) 43 U/L (16-63) Alkaline Phosphatase 65 U/L (46-116) Total Protein 8.1 g/dL (6.4-8.2) Albumin 4.5 g/dL (3.4-5.0) Albumin/Globulin Ratio 1.3 (1.0-1.7) Lipase 69 U/L (73-393) Coronavirus (COVID-19)(PCR) Negative (NEGATIVE) Laboratory Tests Test 09/10/19 10:10 09/10/19 10:40 09/10/19 13:20 Urine Collection Type Unknown Urine Color Yellow Urine Clarity Cloudy Urine pH 6.0 (<5.0-8.0) Urine Specific [place] 1.025 (1.000-1.030) Urine Protein Negative mg/dL (NEG-TRACE) Urine Glucose (UA) Negative mg/dL (NEG) Urine Ketones (Stick) 15 mg/dL (NEG) Urine Blood Negative (NEG) Urine Nitrite Negative (NEG) Urine Bilirubin Negative (NEG) Urine Urobilinogen Dipstick 0.2 mg/dL (0.2 mg/dL) Urine Leukocyte Esterase Negative (NEG) Urine RBC 0 /HPF (0-2) Urine WBC Occ /HPF (0-4) Urine Squamous Epithelial Cells Few /LPF Urine Amorphous Sediment Present /HPF Urine Bacteria 0 /HPF (0-FEW) Urine Mucus Marked /LPF White Blood Count 16.7 x10^3/uL (4.0-11.0) Red Blood Count 5.70 x10^6/uL (4.30-5.70) Hemoglobin 17.3 g/dL (13.0-17.5) Hematocrit 49.1 % (39.0-53.0) Mean Corpuscular Volume 86 fL (79-100) Mean Corpuscular Hemoglobin 30 pg (25-35) Mean Corpuscular Hemoglobin Concent 35 g/dL (31-37) Red Cell Distribution Width 12.5 % (11.5-14.5) Platelet Count 254 x10^3/uL (140-400) Neutrophils (%) (Auto) 89 % (31-73) Lymphocytes (%) (Auto) 5 % (24-48) Monocytes (%) (Auto) 6 % (0-9) Eosinophils (%) (Auto) 0 % (0-3) Basophils (%) (Auto) 0 % (0-3) Neutrophils # (Auto) 14.9 x10^3/uL (1.8-7.7) Lymphocytes # (Auto) 0.9 x10^3/uL (1.0-4.8) Monocytes # (Auto) 0.9 x10^3/uL (0.0-1.1) Eosinophils # (Auto) 0.0 x10^3/uL (0.0-0.7) Basophils # (Auto) 0.0 x10^3/uL (0.0-0.2) Segmented Neutrophils % 65 % (35-66) Band Neutrophils % 21 % (0-9) Lymphocytes % 8 % (24-48) Monocytes % 5 % (0-10) Basophils % 1 % (0-3) Platelet Estimate Adequate (ADEQUATE) Prothrombin Time 13.1 SEC (11.7-14.0) Prothromb Time International Ratio 1.0 (0.8-1.1) Sodium Level 141 mmol/L (136-145) Potassium Level 4.3 mmol/L (3.5-5.1) Chloride Level 102 mmol/L (98-107) Carbon Dioxide Level 30 mmol/L (21-32) Anion Gap 9 (6-14) Blood Urea Nitrogen 11 mg/dL (8-26) Creatinine 1.1 mg/dL (0.7-1.3) Estimated GFR (Cockcroft-Gault) 83.0 BUN/Creatinine Ratio 10 (6-20) Glucose Level 121 mg/dL (70-99) Calcium Level 9.0 mg/dL (8.5-10.1) Total Bilirubin 1.1 mg/dL (0.2-1.0) Aspartate Amino Transf (AST/SGOT) 20 U/L (15-37) Alanine Aminotransferase (ALT/SGPT) 43 U/L (16-63) Alkaline Phosphatase 65 U/L (46-116) Total Protein 8.1 g/dL (6.4-8.2) Albumin 4.5 g/dL (3.4-5.0) Albumin/Globulin Ratio 1.3 (1.0-1.7) Lipase 69 U/L (73-393) Coronavirus (COVID-19)(PCR) Negative (NEGATIVE) Medications Current Medications Sodium Chloride 1,000 ml @ 1,000 mls/hr Q1H IV Last administered on 09/10/19at 10:42; Start 09/10/19 at 10:16; Stop 09/10/19 at 11:15; Status DC Fentanyl Citrate (Fentanyl 2ml Vial) 50 mcg 1X ONCE IVP Last administered on 09/10/19at 10:45; Start 09/10/19 at 10:30; Stop 09/10/19 at 10:31; Status DC Ketorolac Tromethamine (Toradol 30mg Vial) 30 mg 1X ONCE IVP Last administered on 09/10/19at 10:42; Start 09/10/19 at 10:30; Stop 09/10/19 at 10:31; Status DC Iohexol (Omnipaque 300 Mg/ml) 75 ml 1X ONCE IV Last administered on 09/10/19at 12:28; Start 09/10/19 at 12:30; Stop 09/10/19 at 12:31; Status DC Info (CONTRAST GIVEN -- Rx MONITORING) 1 each PRN DAILY PRN MC SEE COMMENTS; Start 09/10/19 at 12:30; Stop 09/12/19 at 12:29 Piperacillin Sod/ Tazobactam Sod 3.375 gm/Sodium Chloride 50 ml @ 100 mls/hr 1X ONCE IV Last administered on 09/10/19at 13:15; Start 09/10/19 at 13:15; Stop 09/10/19 at 13:44; Status DC Ondansetron HCl (Zofran) 4 mg PRN Q8HRS PRN IV NAUSEA/VOMITING; Start 09/10/19 at 13:45; Stop 09/11/19 at 13:44 Ondansetron HCl (Zofran) 4 mg PRN Q6HRS PRN IV NAUSEA/VOMITING; Start 09/10/19 at 14:00; Stop 09/11/19 at 13:59 Fentanyl Citrate (Fentanyl 2ml Vial) 25 mcg PRN Q5MIN PRN IV MILD PAIN 1-3; Start 09/10/19 at 14:00; Stop 09/11/19 at 13:59 Fentanyl Citrate (Fentanyl 2ml Vial) 50 mcg PRN Q5MIN PRN IV MODERATE TO SEVERE PAIN Last administered on 09/10/19at 16:25; Start 09/10/19 at 14:00; Stop 09/11/19 at 13:59 Morphine Sulfate (Morphine Sulfate) 1 mg PRN Q10MIN PRN IV SEVERE PAIN 7-10; Start 09/10/19 at 14:00; Stop 09/11/19 at 13:59 Ringer's Solution 1,000 ml @ 30 mls/hr Q24H IV Last administered on 09/10/19at 13:58; Start 09/10/19 at 13:46; Stop 09/11/19 at 01:45; Status DC Hydromorphone HCl (Dilaudid) 0.5 mg PRN Q10MIN PRN IV SEV PAIN, Second choice; Start 09/10/19 at 14:00; Stop 09/11/19 at 13:59 Prochlorperazine Edisylate (Compazine) 5 mg PACU PRN PRN IV NAUSEA, MRX1; Start 09/10/19 at 14:00; Stop 09/11/19 at 13:59 Famotidine (Pepcid Vial) 20 mg STK-MED ONCE .ROUTE ; Start 09/10/19 at 13:51; Stop 09/10/19 at 13:51; Status DC Ketorolac Tromethamine (Toradol 30mg Vial) 30 mg STK-MED ONCE .ROUTE ; Start 09/10/19 at 13:51; Stop 09/10/19 at 13:51; Status DC Dexamethasone Sodium Phosphate (Decadron) 4 mg STK-MED ONCE .ROUTE ; Start 09/10/19 at 13:51; Stop 09/10/19 at 13:51; Status DC Sevoflurane (Ultane) 30 ml STK-MED ONCE IH ; Start 09/10/19 at 13:51; Stop 09/10/19 at 13:51; Status DC Propofol 100 ml @ As Directed STK-MED ONCE IV ; Start 09/10/19 at 13:51; Stop 09/10/19 at 13:51; Status DC Rocuronium [place] (Zemuron) 50 mg STK-MED ONCE .ROUTE ; Start 09/10/19 at 13:51; Stop 09/10/19 at 13:51; Status DC Fentanyl Citrate (Fentanyl 2ml Vial) 100 mcg STK-MED ONCE .ROUTE ; Start 09/10/19 at 13:51; Stop 09/10/19 at 13:51; Status DC Midazolam HCl (Versed) 2 mg STK-MED ONCE .ROUTE ; Start 09/10/19 at 13:51; Stop 09/10/19 at 13:52; Status DC Bacitracin (Bacitracin) 50,000 unit STK-MED ONCE IRR ; Start 09/10/19 at 13:54; Stop 09/10/19 at 13:54; Status DC Bupivacaine HCl/ Epinephrine Bitart (Sensorcain-Epi 0.5%-1:289337 Mpf) 30 ml STK-MED ONCE .ROUTE Last administered on 09/10/19at 14:52; Start 09/10/19 at 13:56; Stop 09/10/19 at 13:56; Status DC Cefazolin Sodium (Ancef) 1 gm STK-MED ONCE IVP ; Start 09/10/19 at 14:17; Stop 09/10/19 at 14:17; Status DC Dexamethasone Sodium Phosphate (Decadron) 4 mg STK-MED ONCE .ROUTE ; Start 09/10/19 at 15:06; Stop 09/10/19 at 15:06; Status DC Glycopyrrolate (Robinul) 1 mg STK-MED ONCE .ROUTE ; Start 09/10/19 at 15:06; Stop 09/10/19 at 15:07; Status DC Psyllium Hydrophilic Mucilloid (Metamucil Fiber Packet) 1 pkt QHS PO Last administered on 09/10/19at 21:05; Start 09/10/19 at 21:00 Sodium Chloride (Normal Saline Flush) 3 ml QSHIFT PRN IV AFTER MEDS AND BLOOD DRAWS; Start 09/10/19 at 16:00 Potassium Chloride/Sodium Chloride 1,000 ml @ 100 mls/hr Q10H IV ; Start 09/10/19 at 15:53 Dextrose (Dextrose 50%-Water Syringe) 12.5 gm PRN Q15MIN PRN IV SEE COMMENTS; Start 09/10/19 at 16:00 Oxycodone/ Acetaminophen (Percocet 5/325) 1 tab PRN Q4HRS PRN PO MILD PAIN, 1ST CHOICE; Start 09/10/19 at 16:00 Oxycodone/ Acetaminophen (Percocet 5/325) 2 tab PRN Q4HRS PRN PO MODERATE PAIN, SEVERE PAIN; Start 09/10/19 at 16:00 Naloxone HCl (Narcan) 0.4 mg PRN Q2MIN PRN IV SEE INSTRUCTIONS; Start 09/10/19 at 16:00 Sodium Chloride 1,000 ml @ 25 mls/hr Q24H IV ; Start 09/10/19 at 15:53 Hydromorphone HCl (Dilaudid) 1 mg PRN Q3HRS PRN IV PAIN; Start 09/10/19 at 16:00 Docusate Sodium (Colace) 100 mg BID PO Last administered on 09/10/19at 21:05; Start 09/10/19 at 21:00 Ondansetron HCl (Zofran) 4 mg PRN Q6HRS PRN IVP NAUESA, 1ST CHOICE; Start 09/10/19 at 16:00 Vitals/I & O Vital Sign - Last 24 Hours 09/10/19 09/10/19 09/10/19 09/10/19 10:04 10:18 10:48 11:18 Temp 97.7 97.7 Pulse 64 70 62 78 Resp 18 11 18 B/P (MAP) 114/75 (88) 151/100 (117) 139/94 (109) 137/88 (104) Pulse Ox 98 98 97 O2 Delivery Room Air Room Air Room Air Room Air 09/10/19 09/10/19 09/10/19 09/10/19 11:48 12:33 13:03 13:33 Pulse 68 64 68 Resp 18 24 18 B/P (MAP) 145/90 (108) 146/84 (104) 137/76 (96) 138/86 (103) Pulse Ox 98 99 100 O2 Delivery Room Air Room Air Room Air Room Air 09/10/19 09/10/19 09/10/19 09/10/19 14:03 15:33 15:33 15:48 Temp 99.0 99.0 Pulse 78 65 87 Resp 03 09 20 B/P (MAP) 129/71 (90) 116/55 104/55 Pulse Ox 98 99 99 O2 Delivery Room Air Mask Simple Mask Simple Mask O2 Flow Rate 10 10 10 09/10/19 09/10/19 09/10/19 09/10/19 15:57 16:03 16:04 16:24 Temp 97.8 97.8 Pulse 79 81 81 Resp 20 B/P (MAP) 130/58 125/68 122/50 Pulse Ox 100 100 100 100 O2 Delivery Room Air Room Air Room Air Room Air 09/10/19 09/10/19 09/10/19 09/10/19 16:25 16:41 16:43 19:00 Temp 98.2 97.8 98.2 97.8 Pulse 97 Resp 20 B/P (MAP) 118/83 (95) 117/57 (77) Pulse Ox 99 97 97 O2 Delivery Room Air Room Air Room Air 09/10/19 09/10/19 09/11/19 09/11/19 20:00 23:00 03:00 07:00 Temp 99.0 98.8 97.8 99.0 98.8 97.8 Pulse 95 85 83 Resp 20 20 B/P (MAP) 106/50 (68) 105/58 (74) 130/83 (99) Pulse Ox 95 95 100 O2 Delivery Room Air Room Air Room Air Room Air 09/11/19 08:00 O2 Delivery Room Air Intake and Output 09/10/19 09/10/19 09/11/19 15:00 23:00 07:00 Intake Total 1050 ml 500 ml 300 ml Output Total 610 ml Balance 1050 ml -110 ml 300 ml ZURDO MARTINEZ MD Sep 11, 2019 09:44
--- NOTE | 2019-09-11 10:36 | NUR ---
SW following. Discussed with RN, pt from home, room air, regular diet. Pt had surgery 09/10/2019. RN advised no SW needs, and anticipates possible discharge home with self care today. SW will continue to follow should any discharge needs arise.
[2019-09-11 11:00] VITALS: BP 117/74
[2019-09-11] MEDS ORDERED: TRAM50TA PO (11:03)
--- NOTE | 2019-09-11 11:11 | PDOC3 ---
Discharge Summary Visit Information Date of Admission: Sep 10, 2019 Date of Discharge: Sep 11, 2019 Admitting Diagnosis: Acute appendicitis Final Diagnosis Problems Medical Problems: (1) Appendicitis Status: Acute Brief Hospital Course Allergies Allergies Coded Allergies Type Severity Reaction Last Updated Verified No Known Drug Allergies 09/10/19 No Vital Signs Vital Signs Date Time Temp Pulse Resp B/P (MAP) Pulse Ox O2 Delivery O2 Flow Rate FiO2 09/11/19 08:00 Room Air 09/11/19 07:00 97.8 83 20 130/83 (99) 100 97.8 09/10/19 15:48 10 Lab Results Laboratory Tests Test 09/10/19 10:10 09/10/19 10:40 09/10/19 13:20 Urine Collection Type Unknown Urine Color Yellow Urine Clarity Cloudy Urine pH 6.0 (<5.0-8.0) Urine Specific [place] 1.025 (1.000-1.030) Urine Protein Negative mg/dL (NEG-TRACE) Urine Glucose (UA) Negative mg/dL (NEG) Urine Ketones (Stick) 15 mg/dL (NEG) Urine Blood Negative (NEG) Urine Nitrite Negative (NEG) Urine Bilirubin Negative (NEG) Urine Urobilinogen Dipstick 0.2 mg/dL (0.2 mg/dL) Urine Leukocyte Esterase Negative (NEG) Urine RBC 0 /HPF (0-2) Urine WBC Occ /HPF (0-4) Urine Squamous Epithelial Cells Few /LPF Urine Amorphous Sediment Present /HPF Urine Bacteria 0 /HPF (0-FEW) Urine Mucus Marked /LPF White Blood Count 16.7 x10^3/uL (4.0-11.0) Red Blood Count 5.70 x10^6/uL (4.30-5.70) Hemoglobin 17.3 g/dL (13.0-17.5) Hematocrit 49.1 % (39.0-53.0) Mean Corpuscular Volume 86 fL (79-100) Mean Corpuscular Hemoglobin 30 pg (25-35) Mean Corpuscular Hemoglobin Concent 35 g/dL (31-37) Red Cell Distribution Width 12.5 % (11.5-14.5) Platelet Count 254 x10^3/uL (140-400) Neutrophils (%) (Auto) 89 % (31-73) Lymphocytes (%) (Auto) 5 % (24-48) Monocytes (%) (Auto) 6 % (0-9) Eosinophils (%) (Auto) 0 % (0-3) Basophils (%) (Auto) 0 % (0-3) Neutrophils # (Auto) 14.9 x10^3/uL (1.8-7.7) Lymphocytes # (Auto) 0.9 x10^3/uL (1.0-4.8) Monocytes # (Auto) 0.9 x10^3/uL (0.0-1.1) Eosinophils # (Auto) 0.0 x10^3/uL (0.0-0.7) Basophils # (Auto) 0.0 x10^3/uL (0.0-0.2) Segmented Neutrophils % 65 % (35-66) Band Neutrophils % 21 % (0-9) Lymphocytes % 8 % (24-48) Monocytes % 5 % (0-10) Basophils % 1 % (0-3) Platelet Estimate Adequate (ADEQUATE) Prothrombin Time 13.1 SEC (11.7-14.0) Prothromb Time International Ratio 1.0 (0.8-1.1) Sodium Level 141 mmol/L (136-145) Potassium Level 4.3 mmol/L (3.5-5.1) Chloride Level 102 mmol/L (98-107) Carbon Dioxide Level 30 mmol/L (21-32) Anion Gap 9 (6-14) Blood Urea Nitrogen 11 mg/dL (8-26) Creatinine 1.1 mg/dL (0.7-1.3) Estimated GFR (Cockcroft-Gault) 83.0 BUN/Creatinine Ratio 10 (6-20) Glucose Level 121 mg/dL (70-99) Calcium Level 9.0 mg/dL (8.5-10.1) Total Bilirubin 1.1 mg/dL (0.2-1.0) Aspartate Amino Transf (AST/SGOT) 20 U/L (15-37) Alanine Aminotransferase (ALT/SGPT) 43 U/L (16-63) Alkaline Phosphatase 65 U/L (46-116) Total Protein 8.1 g/dL (6.4-8.2) Albumin 4.5 g/dL (3.4-5.0) Albumin/Globulin Ratio 1.3 (1.0-1.7) Lipase 69 U/L (73-393) Coronavirus (COVID-19)(PCR) Negative (NEGATIVE) Laboratory Tests Test 09/10/19 13:20 Coronavirus (COVID-19)(PCR) Negative (NEGATIVE) Brief Hospital Course Mr Barrett is a 23yo M w/ no PMHx who awoke suddenly at approximately 2 AM today with right lower back pain. Once he was able to get back to sleep he awoke and scheduled an appointment with a chiropractor for 9am, but by the time he was going to that appointment the pain had migrated to his right lower quadrant and had become much more severe, colicky 8/10 at worst with some associated nausea. 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 Non-smoker nondrinker, does not use illicit drugs. He is rather sedentary and when not at work he plays online video games with his brother who is currently in the [place]. Prior to ED he had an episode of vomiting. CT abdomen shows early appendicitis. WBC 16.7, Hb 17.3, platelets 253, NA 141, K4.3, CR 1.1, glucose 121. Admitted for further care with surgical consultation. COVID 19 negative To OR with uneventful lap appendectomy. Afebrile. Eating this morning. Passing gas. Minimal pain. No SOB or CP. Some epigastric discomfort with deep inspiration.Mr. Barrett is a 23 old [sex] who presented with [ ] Problem list: Acute appendicitis - S/p lap appy Lower back pain - this seems to be acute appendicitis Obesity - counseled on sedentary lifestyle, diet, exercise Leukocytosis - likely related to appendicitis, will monitor Greater than 30 minutes spent on d/c Discharge Information Condition at Discharge: Improved Follow Up: Weeks (1) Disposition/Orders: D/C to Home Scheduled PRN Tramadol Hcl (Tramadol Hcl) 50 Mg Tablet, 50 MG PO PRN Q6HRS PRN for PAIN for 3 Days, #8 Prescribed by: ZURDO MARTINEZ MD on 09/11/19 1103 Justicifation of Admission Dx: Justifications for Admission: Justification of Admission Dx: Yes ZURDO MARTINEZ MD Sep 11, 2019 11:11
--- NOTE | 2019-09-11 11:14 | PDOC ---
SURGICAL PROGRESS NOTE Subjective tolerating diet minimal pain no n/v urinating Vital Signs Vital Signs Date Time Temp Pulse Resp B/P (MAP) Pulse Ox O2 Delivery O2 Flow Rate FiO2 09/11/19 11:00 98.2 89 20 117/74 (88) 95 Room Air 98.2 09/10/19 15:48 10 I&O Intake and Output 09/11/19 06:59 Intake Total 1850 ml Output Total 610 ml Balance 1240 ml Intake Oral 600 ml IV Total 1250 ml Output Urine Total 600 ml Estimated Blood Loss 10 ml # Voids 3 General: Alert, Oriented X3, Cooperative Abdomen: Soft, Other (lap site dressings dry) Labs Laboratory Tests Test 09/10/19 10:10 09/10/19 10:40 09/10/19 13:20 Urine Collection Type Unknown Urine Color Yellow Urine Clarity Cloudy Urine pH 6.0 (<5.0-8.0) Urine Specific [place] 1.025 (1.000-1.030) Urine Protein Negative mg/dL (NEG-TRACE) Urine Glucose (UA) Negative mg/dL (NEG) Urine Ketones (Stick) 15 mg/dL (NEG) Urine Blood Negative (NEG) Urine Nitrite Negative (NEG) Urine Bilirubin Negative (NEG) Urine Urobilinogen Dipstick 0.2 mg/dL (0.2 mg/dL) Urine Leukocyte Esterase Negative (NEG) Urine RBC 0 /HPF (0-2) Urine WBC Occ /HPF (0-4) Urine Squamous Epithelial Cells Few /LPF Urine Amorphous Sediment Present /HPF Urine Bacteria 0 /HPF (0-FEW) Urine Mucus Marked /LPF White Blood Count 16.7 x10^3/uL (4.0-11.0) Red Blood Count 5.70 x10^6/uL (4.30-5.70) Hemoglobin 17.3 g/dL (13.0-17.5) Hematocrit 49.1 % (39.0-53.0) Mean Corpuscular Volume 86 fL (79-100) Mean Corpuscular Hemoglobin 30 pg (25-35) Mean Corpuscular Hemoglobin Concent 35 g/dL (31-37) Red Cell Distribution Width 12.5 % (11.5-14.5) Platelet Count 254 x10^3/uL (140-400) Neutrophils (%) (Auto) 89 % (31-73) Lymphocytes (%) (Auto) 5 % (24-48) Monocytes (%) (Auto) 6 % (0-9) Eosinophils (%) (Auto) 0 % (0-3) Basophils (%) (Auto) 0 % (0-3) Neutrophils # (Auto) 14.9 x10^3/uL (1.8-7.7) Lymphocytes # (Auto) 0.9 x10^3/uL (1.0-4.8) Monocytes # (Auto) 0.9 x10^3/uL (0.0-1.1) Eosinophils # (Auto) 0.0 x10^3/uL (0.0-0.7) Basophils # (Auto) 0.0 x10^3/uL (0.0-0.2) Segmented Neutrophils % 65 % (35-66) Band Neutrophils % 21 % (0-9) Lymphocytes % 8 % (24-48) Monocytes % 5 % (0-10) Basophils % 1 % (0-3) Platelet Estimate Adequate (ADEQUATE) Prothrombin Time 13.1 SEC (11.7-14.0) Prothromb Time International Ratio 1.0 (0.8-1.1) Sodium Level 141 mmol/L (136-145) Potassium Level 4.3 mmol/L (3.5-5.1) Chloride Level 102 mmol/L (98-107) Carbon Dioxide Level 30 mmol/L (21-32) Anion Gap 9 (6-14) Blood Urea Nitrogen 11 mg/dL (8-26) Creatinine 1.1 mg/dL (0.7-1.3) Estimated GFR (Cockcroft-Gault) 83.0 BUN/Creatinine Ratio 10 (6-20) Glucose Level 121 mg/dL (70-99) Calcium Level 9.0 mg/dL (8.5-10.1) Total Bilirubin 1.1 mg/dL (0.2-1.0) Aspartate Amino Transf (AST/SGOT) 20 U/L (15-37) Alanine Aminotransferase (ALT/SGPT) 43 U/L (16-63) Alkaline Phosphatase 65 U/L (46-116) Total Protein 8.1 g/dL (6.4-8.2) Albumin 4.5 g/dL (3.4-5.0) Albumin/Globulin Ratio 1.3 (1.0-1.7) Lipase 69 U/L (73-393) Coronavirus (COVID-19)(PCR) Negative (NEGATIVE) Laboratory Tests Test 09/10/19 13:20 Coronavirus (COVID-19)(PCR) Negative (NEGATIVE) Problem List Problems Medical Problems: (1) Appendicitis Status: Acute Assessment/Plan s/p appy ok to dc home Justicifation of Admission Dx: Justifications for Admission: Justification of Admission Dx: Yes ASHANTI NINA SERVER Sep 11, 2019 11:14
--- NOTE | 2019-09-12 17:06 | PATHOLOGY ---
[facility] Accession Number: [id number] . 01 Material submitted: . appendix - APPENDIX . 01 Clinical history: . Appendicitis . 02 Diagnosis: Appendix, laparoscopic appendectomy: - Fecaliths. - Acute appendicitis with serosal exudate. (JPM:leyda; 09/12/2019) R 09/12/2019 1200 Local . 02 Comment: There is no evidence of rupture. (JOSEM:leyda; 09/12/2019) . 02 Electronically signed: . Ga Tang MD, Pathologist NPI- [id number] . 01 Gross description: . The specimen is received in formalin, labeled "Barrett, Denny, appendix" and consists of an appendix measuring 9.0 cm in length and up to 1.3 cm in diameter with mesoappendix measuring 2.6 cm thick. The serosa is tiwari with focal thin adhesions. The margin is closed with a line of katey and inked black. Sectioning reveals a dilated lumen containing pink brown fecal material and multiple fecaliths. Employment Service Specialist sections are submitted in A1-A2. (ARCHANA; 09/11/2019) SYU/SYU 09/11/2019 1603 Local . 02 Pathologist provided ICD-10: K35.80, K38.1 . 02 CPT . 938946 Specimen Comment: A courtesy copy of this report has been sent to [phone] Specimen Comment: [id number] Specimen Comment: Report sent to / DR MARTINEZ Performed at: 01 [facility] [address], [place], [place] [id number] MD Steve Davis MD Phone: [phone] Performed at: 02 [facility] [address], [place] [id number] MD Ga Tang MD Phone: [phone]
== END 2019-09-11 12:38 | disposition home or self-care (01) ==
LOC: ER 09:42 → INTOOBSV 13:06 → 4 NORTH 13:06
PROVIDERS: ADMIT Internal Medicine; ATTEND Internal Medicine
DX: K35.890 Other acute appendicitis without perforation or gangrene (principal); E66.9 Obesity, unspecified; K76.0 Fatty (change of) liver, not elsewhere classified; Z20.828 Contact with and (suspected) exposure to other viral communicable diseases
CPT/HCPCS: 36415; 44970; 74177; 80053; 81001; 83690; 85007; 85025; 85610; 88304; 96361; 96365; 96375; 96376; 99285; A7015; G0378; J0690; J1100; J1885; J2250; J2543; J2704; J3010; J3490; J7030; J7120; Q9967; U0003; G0379